=== PATIENT | male | born 1995 | race Two or more races ===

== ENCOUNTER 2016-03-19 15:27 | Emergency (ER) | payer MEDICAID, OTHER ==
[2016-03-19] MEDS ORDERED: KETOROLAC TROMETHAMINE 60 MG/2 ML VIAL ONE (15:58)
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
== END 2016-03-19 17:23 | disposition home or self-care (01) ==
LOC: ED 15:27
DX: S16.1XXA Strain of muscle, fascia and tendon at neck level, initial encounter (principal); R51 Headache; M79.672 Pain in left foot; T14.8 Other injury of unspecified body region; V43.62XA Car passenger injured in collision with other type car in traffic accident, initial encounter; Y92.410 Unspecified street and highway as the place of occurrence of the external cause
CPT/HCPCS: 73630; 72125; 70450; 99283 ×2; 96372; J1885